=== PATIENT | female | born 1945 ===

== ENCOUNTER → 2019-10-31 | Outpatient (CLI) | payer SELFPAY ==
[2019-10-31 18:36] LABS: Basophils % (Auto) 0.2 % (0.0-1.8); Eosinophils # (Auto) 0.2 K/mm3 (0.0-0.4); Eosinophils % (Auto) 1.5 % (0.0-4.3); Hematocrit 35.4 % (30.3-42.9); Hemoglobin 11.7 gm/dl (10.1-14.3); Lymphocytes # (Auto) 1.1 K/mm3 (1.2-5.4); Lymphocytes % (Auto) 7.9 % (13.4-35.0); Mean Corpuscular HGB Conc 33 % (30-34); Mean Corpuscular Volume 87 fl (79-97); Monocytes # (Auto) 0.7 K/mm3 (0.0-0.8); Monocytes % (Auto) 5.1 % (0.0-7.3); Red Blood Count 4.08 M/mm3 (3.65-5.03); Red Cell Distribution Width 17.8 % (13.2-15.2)
[2019-10-31 18:40] LABS: Platelet Count 56 K/mm3 (140-440)
== END | disposition home or self-care (01) ==
LOC: EDSTATUS 12:29 → LABHHL 18:32 → LAB 18:32
PROVIDERS: ATTEND Family Medicine
DX: N39.0 Urinary tract infection, site not specified (principal); R68.89 Other general symptoms and signs
CPT/HCPCS: 36415; 85025